=== PATIENT | female | born 1960 | race Caucasian/White ===

== ENCOUNTER 2023-08-31 11:01 | Inpatient (IN) ==
[2023-08-26 17:44] LABS: Appearance,Urine CLEAR (Clear); Bilirubin,Urine Negative (Negative); Color,Urine STRAW; Culture Indicated,Urine No; Glucose,Urine (UA) Negative (Negative); Ketones,Urine Negative (Negative); Leukocyte Esterase,Urine Negative /uL (Negative); Nitrate,Urine Negative (Negative); Protein,Urine Negative (Negative); Specific Gravity,Urine 1.005 (1.000-1.035); Urine Blood 0.03 mg/dL (Negative); Urine RBC 1 /hpf (0-3); Urine Squamous Epithelial Cell 1 /hpf (0-4); Urine WBC 1 /hpf (0-4); Urobilinogen,Urine Negative
[2023-08-26 17:48] LABS: Basophils # (Auto) 0.04 K/mcL (0.00-0.30); Basophils % (Auto) 0.8 % (0.0-2.0); Eosinophils % (Auto) 5.8 % (0.0-7.0); Hematocrit 37.3 % (34.1-44.9); Hemoglobin 11.7 g/dL (11.2-15.7); Lymphocytes # (Auto) 0.89 K/mcL (1.50-4.80); Lymphocytes % (Auto) 17.1 % (15.5-49.0); Mean Corpuscular HGB Conc 31.4 g/dL (31.0-36.0); Mean Platelet Volume 12.9 fL (8.8-12.5); Monocytes # (Auto) 0.54 K/mcL (0.10-0.90); Monocytes % (Auto) 10.4 % (1.0-12.0); Neutrophils % (Auto) 65.5 % (38.0-78.0); Platelet Count 221 K/mcL (140-440); RBC 3.97 M/mcL (3.59-5.38); Red Cell Distribution Width 12.8 % (11.5-14.5); WBC 5.2 K/mcL (4.5-11.0)
[2023-08-26 18:04] LABS: Blood Urea Nitrogen 19 mg/dL (8-23); Calcium 8.8 mg/dL (8.6-10.4); Carbon Dioxide 23 mmol/L (22-30); Chloride 102 mmol/L (96-108); Glomerular Filtration Rate 37; Glucose 85 mg/dL (70-105)
[2023-08-26 18:47] LABS: Partial Thromboplastin Time 24.6 sec (20.0-37.0); Prothrombin Time 13.2 sec (11.9-14.5)
[~2023-08-31 11:01] MED LIST: 0.9 % SODIUM CHLORIDE 9 ML, KETOROLAC 30 MG, ROPIVACAINE HCL/PF 49.5 ML, EPINEPHrine 0.... IJ SCH; ACETAMINOPHEN 500 MG TABLET PO SCH; CELECOXIB 200 MG CAPSULE PO SCH; GABAPENTIN 300 MG CAPSULE PO SCH; ceFAZolin 2 GM in DEXTROSE 5% IN WATER 50 ML IV SCH; oxyCODONE 10 MG TAB.ER.12H PO SCH
[2023-08-31] MEDS ORDERED: PROPOFOL 200 MG/20 ML VIAL IV ONE (13:31)
[2023-08-31] MEDS ORDERED: fentaNYL 100 MCG/2 ML VIAL IV ONE (14:03)
[2023-08-31] MEDS ORDERED: TRANEXAMIC ACID 1,000 MG/10 ML VIAL ONE (14:24)
[2023-08-31] MEDS ORDERED: ePHEDrine 50 MG/5 ML SYRINGE (ANEST) IV ONE (14:35)
[2023-08-31] MEDS ORDERED: PHENYLephrine 1 MG/10 ML SYRINGE (ANEST) ONE (14:40)
[2023-08-31] MEDS ORDERED: IPRATROPIUM/ALBUTEROL 3 ML AMPUL.NEB NEB PRN (15:05)
[2023-08-31] MEDS ORDERED: FLUMAZENIL 0.1 MG/ML ML IV PRN (15:05)
[2023-08-31] MEDS ORDERED: NALOXONE HCL 0.4 MG/ML VIAL IV PRN (15:05)
[2023-08-31] MEDS ORDERED: ONDANSETRON 4 MG/2 ML VIAL IV PRN ×2 (15:05→18:19)
[2023-08-31] MEDS ORDERED: LACTATED RINGERS 1,000 ML IV SCH ×3 (15:15→20:15)
[2023-08-31] MEDS ORDERED: TRANEXAMIC ACID 1,000 MG/10 ML VIAL IV ONE (17:18)
[2023-08-31] MEDS: fentaNYL 100 MCG/2 ML VIAL IV PRN ×4 (17:45→17:57)
[2023-08-31] MEDS ORDERED: ALBUTEROL SULFATE 60 PUFF INHALER INH PRN (19:21)
[2023-08-31] MEDS ORDERED: HYDROmorphone 0.5 MG/0.5 ML SYRINGE IV PRN (19:55)
[2023-08-31] MEDS ORDERED: HYDROmorphone 1 MG/ML SYRINGE IV PRN ×2 (19:58→20:05)
[2023-08-31] MEDS ORDERED: oxyCODONE (PP) 5MG TABLET (#4) PO PRN (20:06)
[2023-08-31] MEDS ORDERED: oxyCODONE/APAP 5/325MG TABLET PO ONE (20:19)
[2023-08-31] MEDS: GABAPENTIN 300 MG CAPSULE PO SCH (20:21)
[2023-08-31] MEDS: LACTATED RINGERS 1,000 ML IV SCH (20:21)
[2023-08-31] MEDS: CYCLOBENZAPRINE 10 MG TABLET PO SCH (20:22)
[2023-08-31] MEDS: MELOXICAM 7.5 MG TABLET PO SCH (20:22)
[2023-08-31] MEDS: oxyCODONE/APAP 5/325MG TABLET PO PRN ×2 (20:23→21:47)
[2023-08-31] MEDS: QUEtiapine 25 MG TABLET PO SCH (21:48)
[2023-08-31] MEDS: ceFAZolin 1 GM VIAL IV SCH (22:10)
[2023-09-01] MEDS: HYDROmorphone 0.5 MG/0.5 ML SYRINGE IV PRN ×3 (03:25→20:12)
[2023-09-01] MEDS: ceFAZolin 1 GM VIAL IV SCH (05:13)
[2023-09-01] MEDS: oxyCODONE/APAP 5/325MG TABLET PO PRN ×5 (05:14→20:12)
[2023-09-01] MEDS: LACTATED RINGERS 1,000 ML IV SCH ×4 (06:00→19:51)
[2023-09-01] MEDS: PANTOPRAZOLE 40 MG TABLET PO SCH (06:54)
[2023-09-01] MEDS: LEVOTHYROXINE 25 MCG TABLET PO SCH (06:54)
[2023-09-01] MEDS: LEVOTHYROXINE SODIUM 112 MCG TABLET PO SCH (06:54)
[2023-09-01] MEDS: LOPERAMIDE 2 MG CAPSULE PO SCH (08:40)
[2023-09-01] MEDS: CYCLOBENZAPRINE 10 MG TABLET PO SCH ×3 (08:40→20:14)
[2023-09-01] MEDS: SIMVASTATIN 20 MG TABLET PO SCH (08:40)
[2023-09-01] MEDS: ASPIRIN 81 MG TAB.CHEW PO SCH (08:40)
[2023-09-01] MEDS: MELOXICAM 7.5 MG TABLET PO SCH ×2 (08:40→20:14)
[2023-09-01] MEDS: VITAMIN D3 25 MCG TABLET PO SCH (08:40)
[2023-09-01] MEDS: MAGNESIUM OXIDE 400 MG TABLET PO SCH (08:40)
[2023-09-01] MEDS: GABAPENTIN 300 MG CAPSULE PO SCH ×3 (08:40→20:14)
[2023-09-01] MEDS: LACTOBACILLUS 1 CAPSULE PO SCH (08:40)
[2023-09-01] MEDS: CITALOPRAM 20 MG TABLET PO SCH (08:40)
[2023-09-01] MEDS: CALCIUM (OYSTER SHELL) 500 MG TABLET PO SCH (08:40)
[2023-09-01] MEDS: ZINC SULFATE 50 MG CAPSULE PO SCH (08:42)
[2023-09-01] MEDS ORDERED: LISINOPRIL 10 MG TABLET PO SCH (09:00)
[2023-09-01] MEDS ORDERED: ATENOLOL 25 MG TABLET PO SCH (09:00)
[2023-09-01] MEDS ORDERED: 0.9 % SODIUM CHLORIDE 1,000 ML IV ONE (12:00)
[2023-09-01] MEDS: IPRATROPIUM/ALBUTEROL 3 ML AMPUL.NEB NEB PRN (12:01)
[2023-09-01] MEDS ORDERED: LABETALOL HCL 20 MG/4 ML VIAL IV PRN (12:05)
[2023-09-01 13:01] LABS: Basophils # (Auto) 0.03 K/mcL (0.00-0.30); Basophils % (Auto) 0.4 % (0.0-2.0); Eosinophils # (Auto) 0.17 K/mcL (0.00-0.70); Eosinophils % (Auto) 2.5 % (0.0-7.0); Hematocrit 29.9 % (34.1-44.9); Hemoglobin 9.4 g/dL (11.2-15.7); Lymphocytes # (Auto) 1.01 K/mcL (1.50-4.80); Lymphocytes % (Auto) 14.6 % (15.5-49.0); Mean Corpuscular HGB Conc 31.4 g/dL (31.0-36.0); Mean Platelet Volume 12.3 fL (8.8-12.5); Monocytes # (Auto) 0.68 K/mcL (0.10-0.90); Monocytes % (Auto) 9.8 % (1.0-12.0); Neutrophils % (Auto) 72.6 % (38.0-78.0); Platelet Count 206 K/mcL (140-440); RBC 3.18 M/mcL (3.59-5.38); Red Cell Distribution Width 12.5 % (11.5-14.5); WBC 6.9 K/mcL (4.5-11.0)
[2023-09-01 13:26] LABS: ALT/SGPT 11 U/L (<40); AST/SGOT 38 U/L (<32); Albumin 3.2 gm/dL (3.2-5.2); Albumin/Globulin Ratio 1.2 (1.0-2.3); Alkaline Phosphatase 86 U/L (39-117); Bilirubin,Direct < 0.2 mg/dL (0-0.3); Bilirubin,Total 0.2 mg/dL (0.1-1.0); Blood Urea Nitrogen 21 mg/dL (8-23); Calcium 8.3 mg/dL (8.6-10.4); Carbon Dioxide 26 mmol/L (22-30); Chloride 100 mmol/L (96-108); Globulin 2.6 gm/dL (2.2-3.7); Glomerular Filtration Rate 25; Glucose 123 mg/dL (70-105); Lactate Dehydrogenase 222 U/L (135-225); Phosphorous 3.7 mg/dL (2.5-4.5); Triglycerides 131 mg/dL (<150); Uric Acid 6.7 mg/dL (2.5-8.0)
[2023-09-01] MEDS ORDERED: POTASSIUM CHLORIDE 40 MEQ in DEXTROSE 5% IN WATER 500 ML IV PRN (14:09)
[2023-09-01] MEDS ORDERED: ONDANSETRON 4 MG/2 ML VIAL IV PRN (14:09)
[2023-09-01] MEDS ORDERED: POTASSIUM CHLORIDE 20 MEQ TABLET PO PRN ×2 (14:09)
[2023-09-01] MEDS ORDERED: SENNOSIDES 1 TABLET PO PRN (14:09)
[2023-09-01] MEDS ORDERED: POLYETHYLENE GLYCOL 3350 17 GM PACKET PO PRN (14:09)
[2023-09-01] MEDS ORDERED: MAGNESIUM SULFATE 2 GM/50 ML BAG IV PRN (14:09)
[2023-09-01] MEDS ORDERED: ENOXAPARIN 100 MG/ML SYRINGE SQ ONE (16:00)
[2023-09-01] MEDS: DOCUSATE SODIUM 100 MG CAPSULE PO SCH ×2 (20:14→20:18)
[2023-09-01] MEDS: QUEtiapine 25 MG TABLET PO SCH (20:14)
[2023-09-02] MEDS: LACTATED RINGERS 1,000 ML IV SCH ×2 (01:04→04:37)
[2023-09-02] MEDS: oxyCODONE/APAP 5/325MG TABLET PO PRN ×2 (05:30→10:57)
[2023-09-02 06:26] LABS: Basophils # (Auto) 0.02 K/mcL (0.00-0.30); Basophils % (Auto) 0.2 % (0.0-2.0); Eosinophils # (Auto) 0.25 K/mcL (0.00-0.70); Eosinophils % (Auto) 3.1 % (0.0-7.0); Hematocrit 32.1 % (34.1-44.9); Hemoglobin 9.9 g/dL (11.2-15.7); Lymphocytes % (Auto) 17.3 % (15.5-49.0); Mean Cell Volume 96.1 fL (80.0-100.0); Mean Corpuscular HGB Conc 30.8 g/dL (31.0-36.0); Mean Platelet Volume 12.3 fL (8.8-12.5); Monocytes # (Auto) 0.76 K/mcL (0.10-0.90); Monocytes % (Auto) 9.4 % (1.0-12.0); Neutrophils % (Auto) 69.8 % (38.0-78.0); Platelet Count 190 K/mcL (140-440); RBC 3.34 M/mcL (3.59-5.38); Red Cell Distribution Width 12.6 % (11.5-14.5); WBC 8.1 K/mcL (4.5-11.0)
[2023-09-02 06:47] LABS: ALT/SGPT 5 U/L (<40); AST/SGOT 42 U/L (<32); Albumin 3.2 gm/dL (3.2-5.2); Alkaline Phosphatase 95 U/L (39-117); Bilirubin,Direct < 0.2 mg/dL (0-0.3); Bilirubin,Total 0.2 mg/dL (0.1-1.0); Blood Urea Nitrogen 29 mg/dL (8-23); Calcium 8.4 mg/dL (8.6-10.4); Carbon Dioxide 23 mmol/L (22-30); Chloride 102 mmol/L (96-108); Globulin 3.1 gm/dL (2.2-3.7); Glomerular Filtration Rate 26; Glucose 92 mg/dL (70-105); Lactate Dehydrogenase 224 U/L (135-225); Phosphorous 4.3 mg/dL (2.5-4.5); Triglycerides 184 mg/dL (<150); Uric Acid 6.3 mg/dL (2.5-8.0)
[2023-09-02] MEDS: PANTOPRAZOLE 40 MG TABLET PO SCH (07:54)
[2023-09-02] MEDS: LEVOTHYROXINE SODIUM 112 MCG TABLET PO SCH (07:54)
[2023-09-02] MEDS: LEVOTHYROXINE 25 MCG TABLET PO SCH (07:54)
[2023-09-02] MEDS: HYDROmorphone 0.5 MG/0.5 ML SYRINGE IV PRN ×2 (08:00→18:55)
[2023-09-02] MEDS ORDERED: 0.9 % SODIUM CHLORIDE 1,000 ML IV SCH (09:30)
[2023-09-02] MEDS: MELOXICAM 7.5 MG TABLET PO SCH ×2 (10:41→20:49)
[2023-09-02] MEDS: ASPIRIN 81 MG TAB.CHEW PO SCH (10:41)
[2023-09-02] MEDS: LOPERAMIDE 2 MG CAPSULE PO SCH (10:41)
[2023-09-02] MEDS: CYCLOBENZAPRINE 10 MG TABLET PO SCH ×3 (10:41→20:49)
[2023-09-02] MEDS: SIMVASTATIN 20 MG TABLET PO SCH (10:41)
[2023-09-02] MEDS: CALCIUM (OYSTER SHELL) 500 MG TABLET PO SCH (10:41)
[2023-09-02] MEDS: CITALOPRAM 20 MG TABLET PO SCH (10:41)
[2023-09-02] MEDS: ZINC SULFATE 50 MG CAPSULE PO SCH (10:41)
[2023-09-02] MEDS: VITAMIN D3 25 MCG TABLET PO SCH (10:41)
[2023-09-02] MEDS: LACTOBACILLUS 1 CAPSULE PO SCH (10:41)
[2023-09-02] MEDS: GABAPENTIN 300 MG CAPSULE PO SCH ×3 (10:41→20:49)
[2023-09-02] MEDS: DOCUSATE SODIUM 100 MG CAPSULE PO SCH ×2 (10:42→20:28)
[2023-09-02] MEDS: MAGNESIUM OXIDE 400 MG TABLET PO SCH (10:42)
[2023-09-02 17:04] LABS: Albumin 2.9 gm/dL (3.2-5.2); Blood Urea Nitrogen 30 mg/dL (8-23); Calcium 8.1 mg/dL (8.6-10.4); Carbon Dioxide 23 mmol/L (22-30); Chloride 100 mmol/L (96-108); Glomerular Filtration Rate 26; Glucose 94 mg/dL (70-105); Phosphorous 3.9 mg/dL (2.5-4.5)
[2023-09-02] MEDS ORDERED: ENOXAPARIN 100 MG/ML SYRINGE SQ ONE (17:20)
[2023-09-02] MEDS ORDERED: FUROSEMIDE 40 MG/4 ML VIAL IV ONE (17:20)
[2023-09-02] MEDS ORDERED: ALBUMIN HUMAN 12.5 GM/50 ML VIAL IV ONE (17:22)
[2023-09-02] MEDS: QUEtiapine 25 MG TABLET PO SCH (20:49)
[2023-09-03 06:55] LABS: ALT/SGPT 7 U/L (<40); AST/SGOT 50 U/L (<32); Albumin 3.3 gm/dL (3.2-5.2); Albumin/Globulin Ratio 1.1 (1.0-2.3); Alkaline Phosphatase 90 U/L (39-117); Bilirubin,Direct < 0.2 mg/dL (0-0.3); Bilirubin,Total 0.2 mg/dL (0.1-1.0); Blood Urea Nitrogen 26 mg/dL (8-23); Calcium 8.8 mg/dL (8.6-10.4); Carbon Dioxide 27 mmol/L (22-30); Chloride 102 mmol/L (96-108); Glomerular Filtration Rate 32; Glucose 102 mg/dL (70-105); Lactate Dehydrogenase 237 U/L (135-225); Triglycerides 128 mg/dL (<150); Uric Acid 6.7 mg/dL (2.5-8.0)
[2023-09-03] MEDS: IPRATROPIUM/ALBUTEROL 3 ML AMPUL.NEB NEB PRN (07:26)
[2023-09-03] MEDS: PANTOPRAZOLE 40 MG TABLET PO SCH (07:59)
[2023-09-03] MEDS: LACTOBACILLUS 1 CAPSULE PO SCH (07:59)
[2023-09-03] MEDS: LEVOTHYROXINE 25 MCG TABLET PO SCH (07:59)
[2023-09-03] MEDS: LOPERAMIDE 2 MG CAPSULE PO SCH (07:59)
[2023-09-03] MEDS: CYCLOBENZAPRINE 10 MG TABLET PO SCH ×3 (07:59→20:08)
[2023-09-03] MEDS: ZINC SULFATE 50 MG CAPSULE PO SCH (07:59)
[2023-09-03] MEDS: GABAPENTIN 300 MG CAPSULE PO SCH ×3 (07:59→20:07)
[2023-09-03] MEDS: CITALOPRAM 20 MG TABLET PO SCH (07:59)
[2023-09-03] MEDS: MAGNESIUM OXIDE 400 MG TABLET PO SCH (07:59)
[2023-09-03] MEDS: LEVOTHYROXINE SODIUM 112 MCG TABLET PO SCH (07:59)
[2023-09-03] MEDS: SIMVASTATIN 20 MG TABLET PO SCH (07:59)
[2023-09-03] MEDS: VITAMIN D3 25 MCG TABLET PO SCH (07:59)
[2023-09-03] MEDS: ASPIRIN 81 MG TAB.CHEW PO SCH (07:59)
[2023-09-03] MEDS: DOCUSATE SODIUM 100 MG CAPSULE PO SCH ×2 (08:06→19:09)
[2023-09-03] MEDS ORDERED: IOPAMIDOL 100 ML BOTTLE IV ONE (08:41)
[2023-09-03] MEDS ORDERED: FUROSEMIDE 40 MG/4 ML VIAL IV ONE (09:05)
[2023-09-03] MEDS: MELOXICAM 7.5 MG TABLET PO SCH ×2 (09:15→20:08)
[2023-09-03] MEDS: oxyCODONE/APAP 5/325MG TABLET PO PRN ×4 (09:15→21:39)
[2023-09-03] MEDS: CALCIUM (OYSTER SHELL) 500 MG TABLET PO SCH (09:17)
[2023-09-03] MEDS: HYDROmorphone 0.5 MG/0.5 ML SYRINGE IV PRN (10:13)
[2023-09-03] MEDS ORDERED: BISMUTH SUBSALICYLATE 15 ML ORAL.SUSP PO ONE (11:30)
[2023-09-03] MEDS: CALCIUM CARBONATE 500 MG TAB.CHEW CHEWED PRN (11:41)
[2023-09-03] MEDS: QUEtiapine 25 MG TABLET PO SCH (20:08)
[2023-09-04] MEDS: oxyCODONE/APAP 5/325MG TABLET PO PRN ×4 (01:37→20:31)
[2023-09-04 07:05] LABS: Blood Urea Nitrogen 27 mg/dL (8-23); Calcium 8.6 mg/dL (8.6-10.4); Carbon Dioxide 27 mmol/L (22-30); Chloride 99 mmol/L (96-108); Glomerular Filtration Rate 37; Glucose 103 mg/dL (70-105)
[2023-09-04] MEDS: LEVOTHYROXINE 25 MCG TABLET PO SCH (07:49)
[2023-09-04] MEDS: LEVOTHYROXINE SODIUM 112 MCG TABLET PO SCH (07:49)
[2023-09-04] MEDS: PANTOPRAZOLE 40 MG TABLET PO SCH (07:49)
[2023-09-04] MEDS ORDERED: FUROSEMIDE 20 MG TABLET PO ONE (08:57)
[2023-09-04] MEDS: MELOXICAM 7.5 MG TABLET PO SCH ×2 (09:16→20:34)
[2023-09-04] MEDS: MAGNESIUM OXIDE 400 MG TABLET PO SCH (09:16)
[2023-09-04] MEDS: ATENOLOL 25 MG TABLET PO SCH (09:16)
[2023-09-04] MEDS: SIMVASTATIN 20 MG TABLET PO SCH (09:16)
[2023-09-04] MEDS: LOPERAMIDE 2 MG CAPSULE PO SCH (09:16)
[2023-09-04] MEDS: VITAMIN D3 25 MCG TABLET PO SCH (09:16)
[2023-09-04] MEDS: GABAPENTIN 300 MG CAPSULE PO SCH ×3 (09:16→20:33)
[2023-09-04] MEDS: LACTOBACILLUS 1 CAPSULE PO SCH (09:17)
[2023-09-04] MEDS: ASPIRIN 81 MG TAB.CHEW PO SCH (09:17)
[2023-09-04] MEDS: DOCUSATE SODIUM 100 MG CAPSULE PO SCH ×2 (09:17→19:09)
[2023-09-04] MEDS: CITALOPRAM 20 MG TABLET PO SCH (09:17)
[2023-09-04] MEDS: CYCLOBENZAPRINE 10 MG TABLET PO SCH ×3 (09:17→20:34)
[2023-09-04] MEDS: CALCIUM (OYSTER SHELL) 500 MG TABLET PO SCH (09:17)
[2023-09-04] MEDS: ZINC SULFATE 50 MG CAPSULE PO SCH (09:18)
[2023-09-04] MEDS: HYDROmorphone 0.5 MG/0.5 ML SYRINGE IV PRN ×3 (10:15→18:33)
[2023-09-04 10:29] LABS: Hematocrit 26.2 % (34.1-44.9); Hemoglobin 7.9 g/dL (11.2-15.7); Mean Cell Volume 96.7 fL (80.0-100.0); Mean Corpuscular HGB Conc 30.2 g/dL (31.0-36.0); Platelet Count 205 K/mcL (140-440); RBC 2.71 M/mcL (3.59-5.38); Red Cell Distribution Width 12.6 % (11.5-14.5); WBC 4.7 K/mcL (4.5-11.0)
[2023-09-04 11:38] LABS: Band Neutrophils % 1 % (0-10); Basophils % (Manual) 1 % (0-2); Eosinophils % (Manual) 7 % (0-7); Lymphocytes % 25 % (15-49); Monocytes % (Manual) 12 % (1-12); Platelet Estimate NORMAL (Normal); RBC Morphology NORMAL (Normal); Segmented Neutrophils % 54 % (38-78)
[2023-09-04] MEDS: CALCIUM CARBONATE 500 MG TAB.CHEW CHEWED PRN (20:33)
[2023-09-04] MEDS: QUEtiapine 25 MG TABLET PO SCH (20:34)
[2023-09-05] MEDS: oxyCODONE/APAP 5/325MG TABLET PO PRN ×5 (05:34→20:30)
[2023-09-05 06:01] LABS: Basophils # (Auto) 0.06 K/mcL (0.00-0.30); Basophils % (Auto) 1.1 % (0.0-2.0); Eosinophils # (Auto) 0.34 K/mcL (0.00-0.70); Eosinophils % (Auto) 6.3 % (0.0-7.0); Hematocrit 25.8 % (34.1-44.9); Lymphocytes # (Auto) 1.55 K/mcL (1.50-4.80); Lymphocytes % (Auto) 28.6 % (15.5-49.0); Mean Cell Volume 96.3 fL (80.0-100.0); Mean Platelet Volume 11.9 fL (8.8-12.5); Monocytes % (Auto) 11.1 % (1.0-12.0); Neutrophils % (Auto) 52.5 % (38.0-78.0); Platelet Count 223 K/mcL (140-440); RBC 2.68 M/mcL (3.59-5.38); Red Cell Distribution Width 12.3 % (11.5-14.5); WBC 5.4 K/mcL (4.5-11.0)
[2023-09-05 06:20] LABS: ALT/SGPT 27 U/L (<40); AST/SGOT 80 U/L (<32); Albumin 2.9 gm/dL (3.2-5.2); Alkaline Phosphatase 97 U/L (39-117); Bilirubin,Total 0.2 mg/dL (0.1-1.0); Blood Urea Nitrogen 30 mg/dL (8-23); Calcium 8.8 mg/dL (8.6-10.4); Carbon Dioxide 29 mmol/L (22-30); Chloride 99 mmol/L (96-108); Glomerular Filtration Rate 40; Glucose 88 mg/dL (70-105)
[2023-09-05] MEDS: ASPIRIN 81 MG TAB.CHEW PO SCH (08:46)
[2023-09-05] MEDS: CITALOPRAM 20 MG TABLET PO SCH (08:46)
[2023-09-05] MEDS: ZINC SULFATE 50 MG CAPSULE PO SCH (08:46)
[2023-09-05] MEDS: CYCLOBENZAPRINE 10 MG TABLET PO SCH ×3 (08:46→20:49)
[2023-09-05] MEDS: SIMVASTATIN 20 MG TABLET PO SCH (08:46)
[2023-09-05] MEDS: GABAPENTIN 300 MG CAPSULE PO SCH ×3 (08:46→20:48)
[2023-09-05] MEDS: MAGNESIUM OXIDE 400 MG TABLET PO SCH (08:46)
[2023-09-05] MEDS: MELOXICAM 7.5 MG TABLET PO SCH ×2 (08:46→20:48)
[2023-09-05] MEDS: LACTOBACILLUS 1 CAPSULE PO SCH (08:46)
[2023-09-05] MEDS: CALCIUM (OYSTER SHELL) 500 MG TABLET PO SCH (08:47)
[2023-09-05] MEDS: VITAMIN D3 25 MCG TABLET PO SCH (08:47)
[2023-09-05] MEDS: ATENOLOL 25 MG TABLET PO SCH (08:47)
[2023-09-05] MEDS: LOPERAMIDE 2 MG CAPSULE PO SCH (08:47)
[2023-09-05] MEDS: DOCUSATE SODIUM 100 MG CAPSULE PO SCH ×2 (08:48→20:43)
[2023-09-05] MEDS: PANTOPRAZOLE 40 MG TABLET PO SCH (08:48)
[2023-09-05] MEDS ORDERED: LEVOTHYROXINE SODIUM 175 MCG TABLET PO SCH (09:00)
[2023-09-05] MEDS ORDERED: 0.9 % SODIUM CHLORIDE 250 ML IV SCH (09:45)
[2023-09-05] MEDS: LEVOTHYROXINE 25 MCG TABLET PO SCH (09:46)
[2023-09-05] MEDS: LEVOTHYROXINE SODIUM 112 MCG TABLET PO SCH (09:46)
[2023-09-05] MEDS: QUEtiapine 25 MG TABLET PO SCH (20:48)
[2023-09-05] MEDS ORDERED: LEVOTHYROXINE SODIUM 112 MCG TABLET PO SCH (21:00)
[2023-09-05] MEDS ORDERED: LEVOTHYROXINE 25 MCG TABLET PO SCH (21:00)
[2023-09-06] MEDS: oxyCODONE/APAP 5/325MG TABLET PO PRN ×3 (00:25→12:26)
[2023-09-06 06:10] LABS: Basophils # (Auto) 0.06 K/mcL (0.00-0.30); Basophils % (Auto) 1.2 % (0.0-2.0); Eosinophils # (Auto) 0.38 K/mcL (0.00-0.70); Eosinophils % (Auto) 7.7 % (0.0-7.0); Hematocrit 28.6 % (34.1-44.9); Lymphocytes # (Auto) 1.61 K/mcL (1.50-4.80); Lymphocytes % (Auto) 32.5 % (15.5-49.0); Mean Cell Volume 94.4 fL (80.0-100.0); Mean Corpuscular HGB Conc 31.5 g/dL (31.0-36.0); Mean Platelet Volume 11.7 fL (8.8-12.5); Monocytes # (Auto) 0.54 K/mcL (0.10-0.90); Monocytes % (Auto) 10.9 % (1.0-12.0); Neutrophils % (Auto) 47.3 % (38.0-78.0); Platelet Count 249 K/mcL (140-440); RBC 3.03 M/mcL (3.59-5.38)
[2023-09-06] MEDS: LOPERAMIDE 2 MG CAPSULE PO SCH (08:20)
[2023-09-06] MEDS: LACTOBACILLUS 1 CAPSULE PO SCH (08:20)
[2023-09-06] MEDS: CYCLOBENZAPRINE 10 MG TABLET PO SCH (08:20)
[2023-09-06] MEDS: CALCIUM (OYSTER SHELL) 500 MG TABLET PO SCH (08:20)
[2023-09-06] MEDS: ASPIRIN 81 MG TAB.CHEW PO SCH (08:20)
[2023-09-06] MEDS: MELOXICAM 7.5 MG TABLET PO SCH (08:21)
[2023-09-06] MEDS: SIMVASTATIN 20 MG TABLET PO SCH (08:21)
[2023-09-06] MEDS: VITAMIN D3 25 MCG TABLET PO SCH (08:21)
[2023-09-06] MEDS: ATENOLOL 25 MG TABLET PO SCH (08:21)
[2023-09-06] MEDS: GABAPENTIN 300 MG CAPSULE PO SCH (08:21)
[2023-09-06] MEDS: ZINC SULFATE 50 MG CAPSULE PO SCH (08:21)
[2023-09-06] MEDS: PANTOPRAZOLE 40 MG TABLET PO SCH (08:21)
[2023-09-06] MEDS: DOCUSATE SODIUM 100 MG CAPSULE PO SCH (08:21)
[2023-09-06] MEDS: CITALOPRAM 20 MG TABLET PO SCH (08:21)
[2023-09-06] MEDS: MAGNESIUM OXIDE 400 MG TABLET PO SCH (08:21)
== END 2023-09-06 14:35 | disposition home or self-care (01) | DRG 982 ==
LOC: SUR 11:01 → MEDSUR 18:07 → ICU 09-01 14:36
PROVIDERS: ADMIT Internal Medicine; ATTEND Orthopaedic Surgery